=== PATIENT | female | born 1950 | race Caucasian/White ===

== ENCOUNTER 2017-02-02 08:30 | Inpatient (IN) | payer MEDICARE, OTHER ==
[~2017-02-02] VITALS: Ht 165.1 cm; Wt 100.5 kg
[2017-02-02] MEDS ORDERED: LEVO125T5 PO (08:56)
[2017-02-02] MEDS ORDERED: OMEP40CA6 PO (08:56)
[2017-02-02] MEDS ORDERED: ATOR10TA9 PO (08:56)
[2017-02-02] MEDS ORDERED: BUPR1FIL3 PO (08:56)
[2017-02-02] MEDS ORDERED: SODIUM CHLORIDE FLUSH 10ML SYR IVF ONE (09:30)
[2017-02-02] MEDS ORDERED: ACETAMINOPHEN 325 MG TABLET ONE (09:40)
[2017-02-02 09:41] LABS: BLOOD UREA NITROGEN 12 mg/dL (7-18)
[2017-02-02 09:47] LABS: ASPARTATE AMINO TRANSFERASE 21 U/L (15-37); IS PT STATUS REG ER OR PRE ER? YES
[2017-02-02] MEDS ORDERED: ACETAMINOPHEN 325 MG TABLET PO ONE (10:00)
[2017-02-02] MEDS ORDERED: CEFTRIAXONE PMX 1GM/50ML 50 ML ONE (10:13)
[2017-02-02] MEDS ORDERED: AZITHROMYCIN 500 MG in SODIUM CHLORIDE 0.9% 250 ML IVPB ONE (10:30)
[2017-02-02] MEDS ORDERED: CEFTRIAXONE PMX 1GM/50ML 50 ML IVPB ONE (10:30)
[2017-02-02] MEDS ORDERED: SODIUM CHLORIDE FLUSH 10ML SYR IVF PRN (10:30)
[2017-02-02] MEDS ORDERED: IBUPROFEN 200 MG TABLET ONE (10:34)
[2017-02-02] MEDS ORDERED: IBUPROFEN 200 MG TABLET PO ONE (11:00)
[2017-02-02] MEDS ORDERED: AZITHROMYCIN 500 MG in SODIUM CHLORIDE 0.9% 250 ML IV SCH (13:00)
[2017-02-02] MEDS ORDERED: CEFTRIAXONE PMX 1GM/50ML 50 ML IV SCH (13:00)
[2017-02-02] MEDS ORDERED: ACETAMINOPHEN 325 MG TABLET PO PRN (13:00)
[2017-02-02] MEDS ORDERED: DOCUSATE 100 MG CAPSULE PO PRN (13:00)
[2017-02-02 14:46] VITALS: BP 108/66
[2017-02-02] MEDS: HEPARIN 5,000 UNITS/ML, 1ML SQ SCH ×2 (15:34→22:23)
[2017-02-02] MEDS ORDERED: FLUO40CA9 PO (16:18)
[2017-02-02] MEDS ORDERED: CLON0.5T PO (16:18)
[2017-02-02] MEDS: predniSONE 50MG TABLET PO SCH (17:46)
[2017-02-02 18:12] LABS: PATH.CAST-FLAG NOT PRESENT; SPERM-FLAG NOT PRESENT; SRC-FLAG NOT PRESENT; XTAL-FLAG NOT PRESENT; YLC-FLAG NOT PRESENT
[2017-02-02 19:07] VITALS: BP 119/57
[2017-02-02] MEDS: [UNRECOGNIZED DRUG - OTHER] PO SCH (21:00)
[2017-02-02] MEDS: NALOXONE HCL PO SCH (21:00)
[2017-02-02] MEDS: BUPRENORPHINE HCL PO SCH (21:00)
[2017-02-02] MEDS: OMEPRAZOLE 20 MG CAPSULE.DR PO SCH (22:23)
[2017-02-02] MEDS: ATORVASTATIN 10 MG TABLET PO SCH (22:23)
[2017-02-02] MEDS: LEVOTHYROXINE 125 MCG TABLET PO SCH (22:35)
[2017-02-03 02:00] VITALS: BP 113/82
[2017-02-03] MEDS: HEPARIN 5,000 UNITS/ML, 1ML SQ SCH ×3 (05:28→20:17)
[2017-02-03 05:30] LABS: BLOOD UREA NITROGEN 12 mg/dL (7-18)
[2017-02-03 05:34] LABS: ASPARTATE AMINO TRANSFERASE 16 U/L (15-37)
[2017-02-03 08:10] VITALS: BP 140/82
[2017-02-03] MEDS: predniSONE 50MG TABLET PO SCH ×2 (09:03→17:12)
[2017-02-03] MEDS: AZITHROMYCIN 500 MG in SODIUM CHLORIDE 0.9% 250 ML IV SCH (11:17)
[2017-02-03] MEDS: CEFTRIAXONE PMX 1GM/50ML 50 ML IV SCH (11:17)
[2017-02-03 12:31] VITALS: BP 114/68
[2017-02-03 12:36] VITALS: BP 135/84
[2017-02-03 20:00] VITALS: BP 143/85
[2017-02-03] MEDS: OMEPRAZOLE 20 MG CAPSULE.DR PO SCH (20:16)
[2017-02-03] MEDS: ATORVASTATIN 10 MG TABLET PO SCH (20:16)
[2017-02-03] MEDS: LEVOTHYROXINE 125 MCG TABLET PO SCH (20:16)
[2017-02-03] MEDS: NALOXONE HCL PO SCH (20:17)
[2017-02-03] MEDS: [UNRECOGNIZED DRUG - OTHER] PO SCH (20:17)
[2017-02-03] MEDS: BUPRENORPHINE HCL PO SCH (20:17)
[2017-02-03] MEDS ORDERED: FLUOXETINE 20 MG CAPSULE PO SCH (21:00)
[2017-02-04 02:00] VITALS: BP 130/77
[2017-02-04] MEDS: HEPARIN 5,000 UNITS/ML, 1ML SQ SCH (05:44)
[2017-02-04 08:10] VITALS: BP 141/87
[2017-02-04] MEDS: predniSONE 50MG TABLET PO SCH (08:16)
[2017-02-04] MEDS: CEFTRIAXONE PMX 1GM/50ML 50 ML IV SCH (11:18)
[2017-02-04] MEDS: AZITHROMYCIN 500 MG in SODIUM CHLORIDE 0.9% 250 ML IV SCH (11:18)
[2017-02-04] MEDS ORDERED: CEFD300C37 PO (12:42)
[2017-02-04] MEDS ORDERED: AZIT500T77 PO (12:42)
[2017-02-04 12:55] VITALS: BP 133/72
[2017-02-04] MEDS ORDERED: PNEUMOCOCCAL 23 VACCINE IM-VACC ONE (14:30)
== END 2017-02-04 16:00 | disposition home or self-care (01) | DRG 194 ==
LOC: ED 09:59 → EDIP 10:22 → 4WST 14:23
DX: J15.9 Unspecified bacterial pneumonia (principal); I50.30 Unspecified diastolic (congestive) heart failure; R73.9 Hyperglycemia, unspecified; E03.9 Hypothyroidism, unspecified; F32.9 Major depressive disorder, single episode, unspecified; F41.9 Anxiety disorder, unspecified; R09.02 Hypoxemia; R60.0 Localized edema; M32.9 Systemic lupus erythematosus, unspecified; Z87.01 Personal history of pneumonia (recurrent); Z87.891 Personal history of nicotine dependence
CPT/HCPCS: 36415; 71020; 80053; 81001; 83036; 83605; 83735; 83880; 84100; 84145; 84484; 85025; 85610; 85730; 87040; 90732; 93005; 93306; 93970; 99285; J0456; J0696; J1644; J7050; J7512

== ENCOUNTER → 2017-11-27 | Outpatient (CLI) | payer MEDICARE, OTHER ==
[~2017-11-27] MED LIST: ATOR10TA9 PO; AZIT500T5 PO; BUPR1FIL3 PO; CEFD300C37 PO; CLON0.5T PO; FLUO40CA9 PO; LEVO125T5 PO; OMEP40CA6 PO
== END | disposition home or self-care (01) ==
LOC: CFH 14:04
PROVIDERS: ATTEND Internal Medicine Critical Care Medicine
DX: M85.80 Other specified disorders of bone density and structure, unspecified site (principal); R91.8 Other nonspecific abnormal finding of lung field; M48.54XA Collapsed vertebra, not elsewhere classified, thoracic region, initial encounter for fracture
CPT/HCPCS: 71250

== ENCOUNTER 2018-04-15 04:40 | Inpatient (IN) | payer MEDICARE, OTHER ==
[~2018-04-15] VITALS: Ht 165.1 cm; Wt 111.2 kg
[2018-04-15] MEDS ORDERED: SODIUM CHLORIDE 0.9% 1,000 ML IV ONE ×2 (05:05→11:00)
[2018-04-15] MEDS ORDERED: KETOROLAC 30 MG/1 ML ONE (05:25)
[2018-04-15] MEDS ORDERED: ACETAMINOPHEN 500 MG TABLET ONE (05:25)
[2018-04-15] MEDS ORDERED: ONDANSETRON ODT 4 MG ONE (05:25)
[2018-04-15] MEDS ORDERED: ONDANSETRON ODT 4 MG PO ONE (05:30)
[2018-04-15] MEDS ORDERED: ACETAMINOPHEN 500 MG TABLET PO ONE (05:30)
[2018-04-15] MEDS ORDERED: SODIUM CHLORIDE 0.9% 1,000ML IVBOLUS ONE (05:30)
[2018-04-15] MEDS ORDERED: KETOROLAC 30 MG/1 ML IVPush ONE (05:30)
[2018-04-15] MEDS ORDERED: UMEC1DIS INH (05:38)
[2018-04-15] MEDS ORDERED: ALBU8.5H8 INH (05:38)
[2018-04-15] MEDS ORDERED: ASPI-515 PO (05:38)
[2018-04-15 06:00] LABS: BASOPHILS # (AUTO) 0.07 x10^3/uL (0-0.1); BASOPHILS % (AUTO) 1 % (0-1); EOSINOPHILS # (AUTO) 0.02 x10^3/uL (0-0.4); EOSINOPHILS % (AUTO) 0 % (1-7); LYMPHOCYTES # (AUTO) 0.71 x10^3/uL (1-3.4); LYMPHOCYTES % (AUTO) 6 % (22-44); MD NO; MEAN CORPUSCULAR HEMOGLOBIN 30.3 pg (27.0-34.8); MEAN CORPUSCULAR HGB CONC 34.1 g/dL (32.4-35.8); MEAN PLATELET VOLUME 9.1 fL (7.4-10.4); MONOCYTES # (AUTO) 0.54 x10^3/uL (0.2-0.8); MONOCYTES % (AUTO) 5 % (2-9); NEUTROPHILS # (AUTO) 10.62 x10^3/uL (1.8-6.8); NEUTROPHILS % (AUTO) 89 % (42-75); PLATELET COUNT 215 x10^3/uL (130-400); RED BLOOD COUNT 4.27 x10^6/uL (3.82-5.3); RED CELL DISTRIBUTION WIDTH 14.2 % (9.6-15.2)
[2018-04-15 06:09] LABS: ALANINE AMINOTRANSFERASE 34 U/L (12-78); ALBUMIN 3.4 g/dL (3.4-5.0); ANION GAP 9 mmol/L (5-15); CALCIUM 8.9 mg/dL (8.5-10.1); CHLORIDE 105 mmol/L (98-107)
[2018-04-15 06:12] LABS: ALKALINE PHOSPHATASE 128 U/L (45-117); BILIRUBIN,TOTAL 0.2 mg/dL (0.2-1.0); TOTAL PROTEIN 8.2 g/dL (6.4-8.2)
[2018-04-15] MEDS ORDERED: CEFTRIAXONE PMX 1GM/50ML 50 ML ONE (06:16)
[2018-04-15] MEDS ORDERED: CEFTRIAXONE 1,000 MG in SODIUM CHLORIDE 0.9% 50 ML IVPB ONE (06:30)
[2018-04-15] MEDS ORDERED: AZITHROMYCIN 500 MG in SODIUM CHLORIDE 0.9% 250 ML IVPB ONE (06:30)
[2018-04-15 07:28] VITALS: BP 102/68
[2018-04-15] MEDS ORDERED: hydrALAzine 20 MG/ML, 1ML IVPush PRN (11:00)
[2018-04-15] MEDS ORDERED: ALBUTEROL SULFATE 2.5 MG/3 ML HHN PRN (11:00)
[2018-04-15] MEDS ORDERED: CEFTRIAXONE 1,000 MG in SODIUM CHLORIDE 0.9% 50 ML IV SCH (11:00)
[2018-04-15] MEDS ORDERED: ACETAMINOPHEN 325 MG TABLET PO PRN (11:00)
[2018-04-15] MEDS ORDERED: AZITHROMYCIN 500 MG in SODIUM CHLORIDE 0.9% 250 ML IV SCH (11:00)
[2018-04-15] MEDS ORDERED: LABETALOL 5MG/ML, 20ML IVPush PRN (11:00)
[2018-04-15] MEDS ORDERED: ALBUTEROL/IPRATROPIUM 2.5MG/0.5MG, 3 ML NPPB SCH (11:00)
[2018-04-15] MEDS ORDERED: GUAIFENESIN/DM 200-20MG, 10ML UDC PO PRN (11:00)
[2018-04-15] MEDS ORDERED: ONDANSETRON ODT 4 MG PO PRN (11:00)
[2018-04-15] MEDS ORDERED: ONDANSETRON 2MG/ML, 2ML IVPush PRN (11:00)
[2018-04-15] MEDS ORDERED: DOCUSATE 100 MG CAPSULE PO PRN (11:00)
[2018-04-15] MEDS: AZITHROMYCIN 500 MG in DEXTROSE 5% 250 ML IV SCH (11:30)
[2018-04-15 12:41] VITALS: BP 99/61
[2018-04-15] MEDS: OMEPRAZOLE 20 MG CAPSULE.DR PO SCH ×2 (12:57→17:54)
[2018-04-15] MEDS: HEPARIN 5,000 UNITS/ML, 1ML SQ SCH ×2 (12:57→21:18)
[2018-04-15] MEDS: ALBUTEROL SULFATE 2.5 MG/3 ML NPPB SCH ×2 (14:07→18:19)
[2018-04-15 14:48] LABS: RAPID INFLUENZA A Negative (Negative); RAPID INFLUENZA B Negative (Negative)
[2018-04-15 18:24] LABS: MICROSCOPIC INDICATED
[2018-04-15 18:25] LABS: CULTURE INDICATED? YES
[2018-04-15 19:09] VITALS: BP 99/66
[2018-04-15] MEDS: FLUOXETINE HCL 20 MG CAPSULE PO SCH (21:18)
[2018-04-15] MEDS: ATORVASTATIN 10 MG TABLET PO SCH (21:18)
[2018-04-16 01:42] VITALS: BP 102/65
[2018-04-16] MEDS: LEVOTHYROXINE 125 MCG TABLET PO SCH ×2 (05:20→21:00)
[2018-04-16] MEDS: HEPARIN 5,000 UNITS/ML, 1ML SQ SCH ×3 (05:21→20:47)
[2018-04-16 05:43] LABS: BASOPHILS # (AUTO) 0.05 x10^3/uL (0-0.1); BASOPHILS % (AUTO) 1 % (0-1); EOSINOPHILS # (AUTO) 0.06 x10^3/uL (0-0.4); EOSINOPHILS % (AUTO) 1 % (1-7); LYMPHOCYTES # (AUTO) 2.11 x10^3/uL (1-3.4); LYMPHOCYTES % (AUTO) 28 % (22-44); MD NO; MEAN CORPUSCULAR HEMOGLOBIN 30.6 pg (27.0-34.8); MEAN CORPUSCULAR HGB CONC 33.8 g/dL (32.4-35.8); MEAN CORPUSCULAR VOLUME 90.6 fL (80-100); MEAN PLATELET VOLUME 8.9 fL (7.4-10.4); MONOCYTES # (AUTO) 0.49 x10^3/uL (0.2-0.8); MONOCYTES % (AUTO) 7 % (2-9); NEUTROPHILS % (AUTO) 64 % (42-75); PLATELET COUNT 182 x10^3/uL (130-400); RED BLOOD COUNT 3.67 x10^6/uL (3.82-5.3); RED CELL DISTRIBUTION WIDTH 14.9 % (9.6-15.2)
[2018-04-16 05:49] LABS: ANION GAP 8 mmol/L (5-15); CALCIUM 8.4 mg/dL (8.5-10.1); CHLORIDE 107 mmol/L (98-107)
[2018-04-16 05:50] LABS: CREATININE 0.98 mg/dL (0.55-1.02)
[2018-04-16 06:57] VITALS: BP 125/75
[2018-04-16] MEDS: ALBUTEROL SULFATE 2.5 MG/3 ML NPPB SCH ×4 (07:40→20:05)
[2018-04-16] MEDS: ASPIRIN 81 MG TABLET EC PO SCH (08:30)
[2018-04-16] MEDS: BUPRENORPHINE HCL/NALOXONE 8-2MG FILM SL SCH (08:30)
[2018-04-16] MEDS: OMEPRAZOLE 20 MG CAPSULE.DR PO SCH ×2 (08:31→11:00)
[2018-04-16] MEDS: TEMPLATE NON-FORMULARY MED. (Umeclidinium Brm/Vilanterol Tr (Anoro Ellipta 62.5-25 Mcg Inh INH SCH (08:33)
[2018-04-16] MEDS ORDERED: CEFTRIAXONE PMX 1GM/50ML 50 ML IV SCH ×2 (11:00)
[2018-04-16] MEDS: AZITHROMYCIN 500 MG in DEXTROSE 5% 250 ML IV SCH (12:15)
[2018-04-16 12:23] VITALS: BP 112/68
[2018-04-16] MEDS ORDERED: IBUPROFEN 200 MG TABLET PO ONE (13:30)
[2018-04-16 19:29] VITALS: BP 122/81
[2018-04-16] MEDS: FLUOXETINE HCL 20 MG CAPSULE PO SCH (20:46)
[2018-04-16] MEDS: ATORVASTATIN 10 MG TABLET PO SCH (20:47)
[2018-04-17 01:18] VITALS: BP 142/82
[2018-04-17 05:18] LABS: BASOPHILS # (AUTO) 0.05 x10^3/uL (0-0.1); BASOPHILS % (AUTO) 1 % (0-1); EOSINOPHILS % (AUTO) 1 % (1-7); LYMPHOCYTES # (AUTO) 1.88 x10^3/uL (1-3.4); LYMPHOCYTES % (AUTO) 26 % (22-44); MD NO; MEAN CORPUSCULAR HGB CONC 33.3 g/dL (32.4-35.8); MEAN PLATELET VOLUME 9.4 fL (7.4-10.4); MONOCYTES # (AUTO) 0.47 x10^3/uL (0.2-0.8); MONOCYTES % (AUTO) 7 % (2-9); NEUTROPHILS # (AUTO) 4.73 x10^3/uL (1.8-6.8); NEUTROPHILS % (AUTO) 66 % (42-75); PLATELET COUNT 194 x10^3/uL (130-400); RED BLOOD COUNT 3.78 x10^6/uL (3.82-5.3); RED CELL DISTRIBUTION WIDTH 14.7 % (9.6-15.2)
[2018-04-17 05:21] LABS: ANION GAP 8 mmol/L (5-15); CHLORIDE 107 mmol/L (98-107)
[2018-04-17 05:24] LABS: CREATININE 1.01 mg/dL (0.55-1.02)
[2018-04-17] MEDS: HEPARIN 5,000 UNITS/ML, 1ML SQ SCH (05:29)
[2018-04-17] MEDS ORDERED: LEVOTHYROXINE 125 MCG TABLET PO SCH (06:00)
[2018-04-17 06:56] VITALS: BP 153/75
[2018-04-17] MEDS: ALBUTEROL SULFATE 2.5 MG/3 ML NPPB SCH (07:10)
[2018-04-17] MEDS ORDERED: OMEPRAZOLE 20 MG CAPSULE.DR PO SCH (07:30)
[2018-04-17] MEDS: BUPRENORPHINE HCL/NALOXONE 8-2MG FILM SL SCH (08:11)
[2018-04-17] MEDS: ASPIRIN 81 MG TABLET EC PO SCH (08:11)
[2018-04-17] MEDS: TEMPLATE NON-FORMULARY MED. (Umeclidinium Brm/Vilanterol Tr (Anoro Ellipta 62.5-25 Mcg Inh INH SCH (08:12)
[2018-04-17] MEDS ORDERED: CEFD300C37 PO (09:29)
[2018-04-17] MEDS ORDERED: AMOX1TAB62 PO (09:29)
== END 2018-04-17 10:53 | disposition home or self-care (01) | DRG 871 ==
LOC: ED 05:26 → EDIP 06:41 → 4EST 07:16 → DCLOUNGE 04-17 10:49
PROVIDERS: ADMIT Internal Medicine; ATTEND Internal Medicine
DX: A41.9 Sepsis, unspecified organism (principal); J18.0 Bronchopneumonia, unspecified organism; F11.20 Opioid dependence, uncomplicated; N39.0 Urinary tract infection, site not specified; R09.02 Hypoxemia; E03.9 Hypothyroidism, unspecified; M32.9 Systemic lupus erythematosus, unspecified; F32.9 Major depressive disorder, single episode, unspecified; R91.1 Solitary pulmonary nodule; F41.9 Anxiety disorder, unspecified; K76.9 Liver disease, unspecified; Z87.891 Personal history of nicotine dependence
CPT/HCPCS: 36415; 71046; 71250; 80048; 80053; 81001; 83605; 84145; 85025; 87040; 87081; 87086; 87400; 93005; 94640; 96361; 96374; 99285; G0378; J0456; J0696; J1644; J1885; J7060; J7613; Q0162; J7030; J7050

== ENCOUNTER 2019-02-24 18:49 | Observation (INO) | payer MEDICARE, OTHER ==
[~2019-02-24] VITALS: Ht 165.1 cm; Wt 103.9 kg
[2019-02-25 07:10] VITALS: BP 107/59
== END 2019-02-25 14:20 | disposition left against medical advice (07) ==
LOC: ED 20:20 → INTOOBSV 20:21 → EDIP 20:21 → 5SO 21:26
PROVIDERS: ADMIT Internal Medicine; ATTEND Internal Medicine
DX: J44.9 Chronic obstructive pulmonary disease, unspecified (principal); F33.9 Major depressive disorder, recurrent, unspecified; E78.5 Hyperlipidemia, unspecified; F11.20 Opioid dependence, uncomplicated; E66.01 Morbid (severe) obesity due to excess calories; M32.9 Systemic lupus erythematosus, unspecified; K76.89 Other specified diseases of liver; R91.8 Other nonspecific abnormal finding of lung field; Z68.38 Body mass index [BMI] 38.0-38.9, adult; Z79.82 Long term (current) use of aspirin; Z87.01 Personal history of pneumonia (recurrent); Z87.891 Personal history of nicotine dependence; Z79.899 Other long term (current) drug therapy
CPT/HCPCS: 36415; 71045; 78452; 80048; 82040; 83880; 84484; 85025; 93005; 93017; 96372; 99284; A9502; C9898; G0378; J1644; J2785

== ENCOUNTER 2019-12-20 10:35 | Observation (INO) | payer MEDICARE, OTHER ==
[~2019-12-20] VITALS: Ht 165.1 cm; Wt 101.0 kg
[~2019-12-20 10:35] MED LIST changes: +ALBU8.5H8 INH; +AMOX1TAB62 PO; +ASPI-515 PO; +AZIT500T10 PO; -AZIT500T5 PO; +BUPR1FIL SL; +OMEP40CA42 PO; -OMEP40CA6 PO; +UMEC1DIS INH
[2019-12-20] MEDS ORDERED: MORPHINE SULFATE 4 MG/ML, 1ML ONE (11:17)
[2019-12-20] MEDS ORDERED: ONDANSETRON 2MG/ML, 2ML ONE (11:17)
[2019-12-20] MEDS ORDERED: ONDANSETRON 2MG/ML, 2ML IVPush ONE (11:30)
[2019-12-20] MEDS ORDERED: MORPHINE SULFATE 4 MG/ML, 1ML IVPush PRN ×2 (11:30→14:30)
[2019-12-20] MEDS ORDERED: SODIUM CHLORIDE FLUSH 10ML SYR IVF ONE (11:30)
[2019-12-20 11:31] LABS: BASOPHILS # (AUTO) 0.01 x10^3/uL (0-0.1); BASOPHILS % (AUTO) 0 % (0-1); EOSINOPHILS # (AUTO) 0.08 x10^3/uL (0-0.4); EOSINOPHILS % (AUTO) 1 % (1-7); LYMPHOCYTES # (AUTO) 0.93 x10^3/uL (1-3.4); LYMPHOCYTES % (AUTO) 12 % (22-44); MD NO; MEAN CORPUSCULAR HEMOGLOBIN 30.5 pg (27.0-34.8); MEAN CORPUSCULAR HGB CONC 33.4 g/dL (32.4-35.8); MEAN CORPUSCULAR VOLUME 91.4 fL (80-100); MEAN PLATELET VOLUME 8.7 fL (7.4-10.4); MONOCYTES # (AUTO) 0.07 x10^3/uL (0.2-0.8); MONOCYTES % (AUTO) 1 % (2-9); NEUTROPHILS # (AUTO) 6.92 x10^3/uL (1.8-6.8); NEUTROPHILS % (AUTO) 86 % (42-75); PLATELET COUNT 181 x10^3/uL (130-400); RED BLOOD COUNT 4.06 x10^6/uL (3.82-5.3); RED CELL DISTRIBUTION WIDTH 14.1 % (9.6-15.2)
--- NOTE | 2019-12-20 11:36 | NUR ---
lab at [facility], [place] per sep. pt describes pain as muscles spasms. was able to walk at home. fell at 0100 and refused ambulance, then today pain got much worse. pt received 60 mg ketamine iv per ems with some relief. vss. pt tearful, verbalizing displeasure at being here. awaiting xr/lab resutls. as
[2019-12-20 11:53] LABS: ALBUMIN 3.4 g/dL (3.4-5.0); ANION GAP 7 mmol/L (5-15); CALCIUM 8.9 mg/dL (8.5-10.1); CHLORIDE 106 mmol/L (98-107)
[2019-12-20 11:54] LABS: CREATININE 0.99 mg/dL (0.55-1.02)
--- NOTE | 2019-12-20 11:59 | NUR ---
BACK FROM XR. CONTINUES TO C/O PAIN, STS MORPHINE DID NOT HELP.
[2019-12-20] MEDS ORDERED: HYDROmorphone 2 MG/ML, 1ML IVPush PRN (12:30)
[2019-12-20] MEDS ORDERED: HYDROmorphone 1 MG/ML, 1ML INJ ONE (12:31)
--- NOTE | 2019-12-20 12:56 | NUR ---
given dilaudid per mar. pt sts has been told she has a fx in back in past but does not knwo where. wants to be admitted for pain. as
--- NOTE | 2019-12-20 13:01 | NUR ---
anibal [phone]
--- NOTE | 2019-12-20 13:37 | NUR ---
kory in room to discuss poc w pt. oob to commode, seemed to transfer ok w/ standby assist. as
--- NOTE | 2019-12-20 13:56 | NUR ---
to commode and to bed. as
--- NOTE | 2019-12-20 14:27 | NUR ---
report to kelly styles. as
[2019-12-20] MEDS ORDERED: SODIUM CHLORIDE FLUSH 10ML SYR IVF PRN (14:30)
--- NOTE | 2019-12-20 14:34 | NUR ---
[facility] NUMBER [phone], CALLED FOR UPDATE
[2019-12-20] MEDS ORDERED: LABETALOL 5MG/ML, 20ML IVPush PRN (16:00)
[2019-12-20] MEDS: OMEPRAZOLE 20 MG CAPSULE.DR PO SCH (16:00)
[2019-12-20] MEDS ORDERED: hydrALAzine 20 MG/ML, 1ML IVPush PRN (16:00)
[2019-12-20] MEDS ORDERED: MORPHINE SULFATE 4 MG/ML, 1ML IVPush ONE (16:00)
[2019-12-20] MEDS ORDERED: ONDANSETRON 2MG/ML, 2ML IVPush PRN (16:00)
[2019-12-20] MEDS ORDERED: morphine SULFATE 10 MG/ML, 1ML ONE (16:09)
[2019-12-20 17:46] VITALS: BP 141/84
[2019-12-20 19:16] VITALS: BP 121/86
[2019-12-20] MEDS: morphine SULFATE 10 MG/ML, 1ML IVPush PRN (20:54)
[2019-12-20] MEDS: FLUOXETINE HCL 20 MG CAPSULE PO SCH (20:59)
[2019-12-20] MEDS: ATORVASTATIN 10 MG TABLET PO SCH (20:59)
[2019-12-20] MEDS: ACETAMINOPHEN 325 MG TABLET PO PRN (21:00)
[2019-12-21] VITALS (7 sets, daily range): BP systolic 91–140; BP diastolic 61–84
[2019-12-21] MEDS: morphine SULFATE 10 MG/ML, 1ML IVPush PRN ×5 (01:11→22:45)
[2019-12-21] MEDS: ACETAMINOPHEN 325 MG TABLET PO PRN ×2 (01:15→15:24)
[2019-12-21 05:02] LABS: BASOPHILS # (AUTO) 0.03 x10^3/uL (0-0.1); BASOPHILS % (AUTO) 1 % (0-1); EOSINOPHILS # (AUTO) 0.08 x10^3/uL (0-0.4); EOSINOPHILS % (AUTO) 1 % (1-7); LYMPHOCYTES # (AUTO) 1.59 x10^3/uL (1-3.4); LYMPHOCYTES % (AUTO) 28 % (22-44); MD NO; MEAN CORPUSCULAR HEMOGLOBIN 30.6 pg (27.0-34.8); MEAN CORPUSCULAR HGB CONC 33.3 g/dL (32.4-35.8); MEAN CORPUSCULAR VOLUME 91.7 fL (80-100); MEAN PLATELET VOLUME 9.3 fL (7.4-10.4); MONOCYTES # (AUTO) 0.46 x10^3/uL (0.2-0.8); MONOCYTES % (AUTO) 8 % (2-9); NEUTROPHILS # (AUTO) 3.57 x10^3/uL (1.8-6.8); NEUTROPHILS % (AUTO) 62 % (42-75); PLATELET COUNT 167 x10^3/uL (130-400); RED CELL DISTRIBUTION WIDTH 14.3 % (9.6-15.2)
[2019-12-21 05:06] LABS: ALBUMIN 3.1 g/dL (3.4-5.0); ANION GAP 9 mmol/L (5-15); CALCIUM 8.8 mg/dL (8.5-10.1); CHLORIDE 107 mmol/L (98-107)
[2019-12-21 05:09] LABS: ALANINE AMINOTRANSFERASE 20 U/L (12-78); ALKALINE PHOSPHATASE 79 U/L (45-117); BILIRUBIN,TOTAL 0.5 mg/dL (0.2-1.0); CREATININE 0.99 mg/dL (0.55-1.02); TOTAL PROTEIN 7.3 g/dL (6.4-8.2)
[2019-12-21] MEDS: OMEPRAZOLE 20 MG CAPSULE.DR PO SCH ×3 (07:36→21:37)
[2019-12-21] MEDS: LEVOTHYROXINE 125 MCG TABLET PO SCH (07:36)
[2019-12-21] MEDS: HYDROcodone/APAP 5/325 TABLET PO PRN ×3 (07:38→21:39)
[2019-12-21] MEDS ORDERED: LORazepam 2 MG/ML, 1ML ONE (08:12)
[2019-12-21] MEDS ORDERED: LORazepam 2 MG/ML, 1ML IVPush ONE (08:30)
[2019-12-21] MEDS ORDERED: GADOTERATE 10 MMOL/20 ML SYR ONE (08:59)
[2019-12-21] MEDS ORDERED: ASPIRIN 81 MG TABLET EC PO SCH (09:00)
[2019-12-21] MEDS ORDERED: ERGOCALCIFEROL 50,000 UNIT CAPSULE PO SCH (09:30)
[2019-12-21] MEDS: CYCLOBENZAPRINE 10 MG TABLET PO SCH ×3 (10:54→21:40)
[2019-12-21] MEDS: GABAPENTIN 100 MG CAPSULE PO SCH ×3 (13:49→21:41)
[2019-12-21] MEDS: FLUOXETINE HCL 20 MG CAPSULE PO SCH (21:35)
[2019-12-21] MEDS: ATORVASTATIN 10 MG TABLET PO SCH (21:40)
[2019-12-22 00:34] VITALS: BP 119/63
[2019-12-22 03:09] VITALS: BP 105/70
[2019-12-22] MEDS: HYDROcodone/APAP 5/325 TABLET PO PRN ×4 (03:23→21:27)
[2019-12-22 06:30] VITALS: BP 111/76
[2019-12-22] MEDS: morphine SULFATE 10 MG/ML, 1ML IVPush PRN ×2 (06:38→10:46)
[2019-12-22] MEDS: GABAPENTIN 100 MG CAPSULE PO SCH (06:39)
[2019-12-22] MEDS: LEVOTHYROXINE 125 MCG TABLET PO SCH (07:37)
[2019-12-22] MEDS: CYCLOBENZAPRINE 10 MG TABLET PO SCH ×3 (07:37→21:28)
[2019-12-22] MEDS: OMEPRAZOLE 20 MG CAPSULE.DR PO SCH ×2 (07:38→21:27)
[2019-12-22] MEDS: ACETAMINOPHEN 325 MG TABLET PO PRN ×2 (10:46→16:58)
[2019-12-22] MEDS ORDERED: MORPHINE SULFATE 4 MG/ML, 1ML ONE (12:10)
[2019-12-22] MEDS: GABAPENTIN 400 MG CAPSULE PO SCH ×3 (12:16→21:00)
[2019-12-22] MEDS ORDERED: MORPHINE SULFATE 4 MG/ML, 1ML IVPush ONE (12:30)
[2019-12-22 14:07] VITALS: BP 127/84
[2019-12-22 19:02] VITALS: BP 108/70
[2019-12-22] MEDS: FLUOXETINE HCL 20 MG CAPSULE PO SCH (21:26)
[2019-12-22] MEDS: ATORVASTATIN 10 MG TABLET PO SCH (21:28)
[2019-12-23 00:54] VITALS: BP 125/76
[2019-12-23] MEDS: morphine SULFATE 10 MG/ML, 1ML IVPush PRN (00:59)
[2019-12-23] MEDS: GABAPENTIN 400 MG CAPSULE PO SCH ×2 (06:00→09:04)
[2019-12-23 06:47] VITALS: BP 113/62
[2019-12-23] MEDS: OMEPRAZOLE 20 MG CAPSULE.DR PO SCH (09:04)
[2019-12-23] MEDS: CYCLOBENZAPRINE 10 MG TABLET PO SCH (09:04)
[2019-12-23] MEDS: ACETAMINOPHEN 325 MG TABLET PO PRN (09:04)
[2019-12-23] MEDS: LEVOTHYROXINE 125 MCG TABLET PO SCH (09:04)
== END 2019-12-23 09:27 | disposition left against medical advice (07) ==
LOC: ED 14:57 → EDIP 15:13 → INTOOBSV 15:13 → 3N 15:34
PROVIDERS: ADMIT Family Medicine; ATTEND Internal Medicine
DX: S32.010A Wedge compression fracture of first lumbar vertebra, initial encounter for closed fracture (principal); S09.90XA Unspecified injury of head, initial encounter; E03.9 Hypothyroidism, unspecified; E78.5 Hyperlipidemia, unspecified; E66.9 Obesity, unspecified; E55.9 Vitamin D deficiency, unspecified; F32.9 Major depressive disorder, single episode, unspecified; F11.20 Opioid dependence, uncomplicated; G89.29 Other chronic pain; M54.5 Low back pain; J44.9 Chronic obstructive pulmonary disease, unspecified; Z87.891 Personal history of nicotine dependence; Z79.82 Long term (current) use of aspirin; Z79.899 Other long term (current) drug therapy; W01.0XXA Fall on same level from slipping, tripping and stumbling without subsequent striking against object, initial encounter; Y92.090 Kitchen in other non-institutional residence as the place of occurrence of the external cause; Y93.89 Activity, other specified
CPT/HCPCS: 36415; 70450; 71045; 72072; 72110; 72131; 72158; 80048; 80053; 82040; 82306; 84443; 85025; 96374; 96375; 96376; 99285; A9575; G0378; J1170; J2060; J2270; J2405; 90471

== ENCOUNTER → 2020-07-27 | Outpatient (CLI) | payer MEDICARE, OTHER | END | disposition home or self-care (01) | LOC: CFH 14:32 | PROVIDERS: ATTEND Nurse Practitioner Family | DX: R91.8 Other nonspecific abnormal finding of lung field (principal) | CPT/HCPCS: 71250 ==

== ENCOUNTER → 2020-10-28 | Outpatient (CLI) | payer MEDICARE, OTHER ==
[~2020-10-28] MED LIST changes: -ASPI-515 PO; +ASPI-963 PO
== END | disposition home or self-care (01) ==
LOC: CFH 15:40
PROVIDERS: ATTEND Nurse Practitioner Family
DX: R91.8 Other nonspecific abnormal finding of lung field (principal); J98.4 Other disorders of lung
CPT/HCPCS: 71250